=== PATIENT | male | born 1975 | race Caucasian/White ===

== ENCOUNTER 2018-01-10 19:42 | Emergency (ER) | payer OTHER ==
[2018-01-10] MEDS ORDERED: NS 1,000 ML IV ONE (20:01)
[2018-01-10 20:35] LABS: PLATELET COUNT 175 10^3/uL (150-400)
[2018-01-10] MEDS ORDERED: IOPAMIDOL (ISOVUE-300) 100 ML BTL ONE (21:14)
--- NOTE | 2018-01-10 22:17 | EDPHY ---
H & P Smoking Status: Never smoked Time Seen by Provider: 01/10/18 19:58 HPI/ROS: HPI Abdominal pain. 42-year-old male by private vehicle. This patient reports that he developed pain in his right testicle which she described as vague, mild and a dull ache about 3 weeks ago. He reports that he was seen by his primary care physician about a week ago for this. He did not have any diagnostic testing or urinalysis done. He was given a presumptive diagnosis of epididymitis and placed on ciprofloxacin. He has been on ciprofloxacin for 6 days now. He reports the pain over the last 6-7 days his migrated up into his right lower quadrant and right flank area. He still has some right testicular discomfort but he states that it is mild. No fever. He has had no nausea or vomiting. No constipation. Last bowel movement was this morning. Described as normal. No bloody or melenic stool. No prior history of abdominal surgeries. Denies any discharge from his penis. No hematuria. No other complaints. ROS: Constitutional: No fever, no chills. No weakness. Eyes: No discharge. No changes in vision. ENT: No sore throat. No nasal congestion or rhinorrhea. Respiratory: No cough. No shortness of breath. Cardiac: No chest pain, no palpitations. Gastrointestinal: As above, no vomiting, no diarrhea. Genitourinary: No hematuria. No dysuria or increased frequency with urination. Musculoskeletal: As above. No neck pain. No myalgias or arthralgias. Skin: No rashes. Neurological: No headache. No focal weakness or altered sensation. Past medical history: Denies any significant past medical history other than noted above. Social history: Nonsmoker. Here by himself. Physical Exam: General Appearance: Alert, no distress. This patient is responding to questions appropriately and in full sentences. This patient appears well- hydrated and well-nourished. Eyes: Pupils equal and round no pallor or injection. No lid edema, erythema or injection. Respiratory: There are no retractions, lungs are clear to auscultation with good air movement bilaterally. Cardiovascular: Regular rate and rhythm. No murmur. Gastrointestinal: Abdomen is soft with vague and mild right lower quadrant tenderness on palpation, no masses, bowel sounds normal. No focal tenderness at McBurney's point. No Carlton sign. Genitourinary: Normal circumcised penis. No discharge. No lesions. Testicular exam unremarkable. No clinical evidence of torsion. No scrotal inflammation or masses noted. Neurological: Motor sensory function is grossly intact. Cranial nerves are normal. Gait is normal. Skin: Warm and dry, no rashes. Musculoskeletal: No CVA tenderness bilaterally. Extremities are symmetrical. All joints range without pain or impingement. Psychiatric: No agitation. No depression. Database: EKG: Imaging: CT scan of abdomen and pelvis with IV contrast: The appendix is well visualized and is normal. No evidence of ureterolithiasis. No other significant findings. Results were discussed with staff radiologist Dr. Maximo Blair. Procedures: Emergency department course: Triage vital signs reviewed. He is moderately hypertensive. Vital signs otherwise normal. At this time he does not require pain medications. He consents for CT imaging to evaluate for appendicitis. He was started on IV normal saline with 500 cc to 1 L to be given over the next hour. 10:15 p.m., patient re-evaluated. Resting comfortably at this time. Results of his blood work, urinalysis discussed with him. Results of CT scan of abdomen and pelvis discussed. At this time he states he is feeling better but still has a sensation of a mild dull ache in his right testicle. Right testicular ultrasound will be obtained. His care was turned over to Dr. Live Damon at 10:15 p.m.. Differential Diagnosis: The differential diagnosis on this patient includes but is not limited to epididymitis, constipation. Appendicitis, testicular torsion, volvulus, ureterolithiasis unlikely. This represents a partial list of diagnoses considered. These considerations are based on history, physical exam, past history, reassessment and diagnostic testing. (Clif Sharif) Constitutional: Initial Vital Signs Temperature (C) 36.7 C 01/10/18 19:46 Heart Rate 99 01/10/18 19:46 Respiratory Rate 20 01/10/18 19:46 Blood Pressure 139/85 H 01/10/18 19:46 O2 Sat (%) 96 01/10/18 19:46 O2 Delivery Mode Room Air Allergies/Adverse Reactions: Barbiturates Allergy (Verified 01/10/18 19:45) oseltamivir [From Tamiflu] Allergy (Verified 01/10/18 19:45) Home Medications: Medication Instructions Recorded Ascorbic Acid [Vitamin C 500 mg 500 - 1,000 mg PO DAILY 09/29/15 (*)] Herbals/Supplements -Info Only 1 ea PO DAILY 09/29/15 Ibuprofen [Advil] 400 mg PO BID PRN 09/29/15 Ciprofloxacin 01/10/18 Medical Decision Making - Diagnostics Imaging Results: Imaging Impressions Abdomen CT 01/10/18 21:10 Impression: 1. Mild constipation. 2. No CT evidence of appendicitis, abscess or bowel obstruction. 3. No urinary tract obstruction or nephrolithiasis. Findings and recommendations discussed with Emergency Department physician, Clif Shraif MD at 22:09 hour, 01/10/2018. Final report concurs with initial preliminary interpretation. ED Course/Re-evaluation: 2307: I was asked to follow-up this patient's ultrasound. The ultrasound shows no evidence of torsion or epididymitis or orchitis. There are small bilateral hydroceles and varicoceles. I have updated the patient about this. Recommend urology follow-up. Additionally return precautions discussed with the patient. (Live Damon) - Data Points Laboratory Results: Laboratory Results 01/10/18 20:24 01/10/18 20:24 01/10/18 01/10/18 01/10/18 20:24 20:24 20:17 WBC 7.70 10^3/uL 10^3/uL (3.80-9.50) RBC 4.82 10^6/uL 10^6/uL (4.40-6.38) Hgb 15.4 g/dL g/dL (13.7-17.5) Hct 42.9 % % (40.0-51.0) MCV 89.0 fL fL (81.5-99.8) MCH 32.0 pg pg (27.9-34.1) MCHC 35.9 g/dL g/dL (32.4-36.7) RDW 12.7 % % (11.5-15.2) Plt Count 175 10^3/uL 10^3/uL (150-400) MPV 9.1 fL fL (8.7-11.7) Neut % (Auto) 68.0 % % (39.3-74.2) Lymph % (Auto) 24.7 % % (15.0-45.0) [place] % (Auto) 4.7 % % (4.5-13.0) Eos % (Auto) 2.2 % % (0.6-7.6) Baso % (Auto) 0.1 % L % (0.3-1.7) Nucleat RBC Rel Count 0.0 % % (0.0-0.2) Absolute Neuts (auto) 5.24 10^3/uL 10^3/uL (1.70-6.50) Absolute Lymphs (auto) 1.90 10^3/uL 10^3/uL (1.00-3.00) Absolute Monos (auto) 0.36 10^3/uL 10^3/uL (0.30-0.80) Absolute Eos (auto) 0.17 10^3/uL 10^3/uL (0.03-0.40) Absolute Basos (auto) 0.01 10^3/uL L 10^3/uL (0.02-0.10) Absolute Nucleated RBC 0.00 10^3/uL 10^3/uL (0-0.01) Immature Gran % 0.3 % % (0.0-1.1) Immature Gran # 0.02 10^3/uL 10^3/uL (0.00-0.10) Sodium 137 mEq/L mEq/L (135-145) Potassium 3.4 mEq/L mEq/L (3.3-5.0) Chloride 103 mEq/L mEq/L (97-110) Carbon Dioxide 25 mEq/l mEq/l (22-31) Anion Gap 9 mEq/L mEq/L (8-16) BUN 16 mg/dL mg/dL (7-23) Creatinine 0.8 mg/dL mg/dL (0.7-1.3) Estimated GFR > 60 Glucose 114 mg/dL H mg/dL (70-100) Calcium 9.4 mg/dL mg/dL (8.5-10.4) Urine Color YELLOW Urine Appearance CLEAR Urine pH 5.0 (5.0-7.5) Ur Specific [place] 1.011 (1.002-1.030) Urine Protein NEGATIVE (NEGATIVE) Urine Ketones NEGATIVE (NEGATIVE) Urine Blood NEGATIVE (NEGATIVE) Urine Nitrate NEGATIVE (NEGATIVE) Urine Bilirubin NEGATIVE (NEGATIVE) Urine Urobilinogen NEGATIVE EU EU (0.2-1.0) Ur Leukocyte Esterase NEGATIVE (NEGATIVE) Urine RBC 1-3 /hpf /hpf (0-3) Urine WBC 1-3 /hpf /hpf (0-3) Ur Epithelial Cells NONE SEEN /lpf /lpf (NONE-1+) Urine Mucus TRACE /lpf /lpf (NONE-1+) Urine Glucose NEGATIVE (NEGATIVE) Medications Given: Discontinued Medications Sodium Chloride (Ns) 1,000 mls @ 0 mls/hr IV ONCE ONE; Wide Open PRN Reason: Protocol Stop: 01/10/18 20:02 Last Admin: 01/10/18 22:10 Dose: 1,000 mls Departure - Departure Disposition: Home, Routine, Self-Care Clinical Impression: Lower abdominal pain Condition: Good Instructions: Epididymitis (ED), Acute Abdominal Pain (ED) Additional Instructions: Read and follow provided instructions. Follow-up with your primary care physician in 1-2 days for re-evaluation as discussed. Ibuprofen dosin mg every 6 hours with meals for the next 3 days only. Take only as needed for pain. Finish antibiotic course as prescribed. Return to the emergency department for worsening pain, fever, vomiting or other serious concerns. Referrals: Scott Vargas [Primary Care Provider] - As per Instructions Steven Naidu MD [Medical Doctor] - As per Instructions
[2018-01-10 23:15] VITALS: BP 137/79
[2018-01-11 12:59] LABS: GC AMPLIFICATION GENPROBE NEGATIVE (NEGATIVE)
== END 2018-01-10 23:15 | disposition home or self-care (01) ==
DX: R10.31 Right lower quadrant pain (principal); E86.9 Volume depletion, unspecified
CPT/HCPCS: Q9967

== ENCOUNTER → 2018-01-29 | Outpatient (CLI) | payer OTHER | LOC: FIMAGING 10:16 | PROVIDERS: ATTEND Family Medicine | DX: J40 Bronchitis, not specified as acute or chronic (principal); E78.5 Hyperlipidemia, unspecified; R19.7 Diarrhea, unspecified ==